=== PATIENT | female | born 1955 | race Two or more races ===

== ENCOUNTER → 2016-08-06 | Outpatient (CLI) | payer OTHER ==
[~2016-08-06] MED LIST: ATEN100T; LOSA1TAB21; METF500T4; NABU-83; OMEP20CA9; TRAM100T27
--- NOTE | 2016-08-07 09:29 | RADRPT ---
PROCEDURE: XR Knee. CLINICAL INDICATION: Left knee pain TECHNIQUE: 4 views of the left knee are available for review. COMPARISON: None available FINDINGS: Severe narrowing of the medial compartment of the left knee is seen. Severe narrowing of the latera l compartment of the left knee is seen. There is narrowing of the patellofemoral joint as well. Th ere is significant associated osteophyte formation as well. Findings are consistent with significan t osteoarthritic degenerative changes of the left knee. No acute fracture or dislocation is seen. No radiopaque foreign body is identified. There is approximately 1 cm lateral subluxation of the ti narda relative to the femur. IMPRESSION: 1. Severe tricompartmental osteoarthritic degenerative changes of the left knee. 2. There is approximately 1 cm lateral subluxation of the tibia relative to the femur. RPTAT: QQ .Srinivas Nichole MD, Date Time Electronically viewed and signed by .Srinivas Nichole MD, on 08/07/2016 09:28 .R/
== END | disposition home or self-care (01) ==
LOC: HKI 09:31
PROVIDERS: ATTEND Orthopaedic Surgery
DX: M17.12 Unilateral primary osteoarthritis, left knee (principal); M25.562 Pain in left knee
CPT/HCPCS: 73564; G0463

== ENCOUNTER → 2016-09-05 | Outpatient (CLI) | payer OTHER ==
--- NOTE | 2016-09-05 16:56 | RADRPT ---
PROCEDURE: Limited x-ray of both lower extremities. CLINICAL INDICATION: Bilateral leg pain. TECHNIQUE: Single frontal view of both lower extremities was obtained from the hips to the calves. COMPARISON: Left knee radiographs dated 08/06/2016. FINDINGS: The hips are not well seen due to technical factors. There are moderate degenerative changes of the right knee and severe degenerative changes of the left knee. There is approximately 1 cm lateral scherer bluxation of the left tibia. IMPRESSION: 1. Is not well seen. 2. Moderate degenerative changes of the right knee and severe degenerative changes of the left knee . 3. Approximately 1 cm lateral subluxation of the left tibia. RPTAT: QQ .Kadeem Baeza MD, MD Date Time Electronically viewed and signed by .Kadeem Baeza MD, on 09/05/2016 16:56 .R/
== END | disposition home or self-care (01) ==
LOC: HKI 09:17
PROVIDERS: ATTEND Orthopaedic Surgery
DX: Z01.818 Encounter for other preprocedural examination (principal); M17.12 Unilateral primary osteoarthritis, left knee; M25.562 Pain in left knee
CPT/HCPCS: 77073; G0463

== ENCOUNTER 2016-09-11 09:18 | Inpatient (IN) | payer OTHER ==
[2016-09-10 13:16] VITALS: BMI 33.2
--- NOTE | 2016-09-10 15:08 | PREOPHP ---
DATE OF ADMISSION: 09/11/2016 CHIEF COMPLAINT: Severe pain in the left knee. HISTORY OF PRESENT ILLNESS: Patient has been having arthritis of the left knee for many years. Karen n gradually became worse recently. Patient was seen by Dr. Robledo in orthopedic consultation, and jaky coronado felt that the knee arthritis had degenerated to the point where the patient required a total left knee replacement. The patient accordingly presents herself to the hospital at this time for this pr ocedure. FAMILY HISTORY: Mother of a stroke at age 59. Father of causes due to smoking, probably chronic obstructive bronchopulmonary disease at age 54. Patient had 3 brothers, 2 are alive, 1 is d ead. The one that , of renal insufficiency. One is normal and healthy, and one has diabete s mellitus. The patient has 1 sister alive and well. No family history of carcinoma or tuberculosi s. There is a family history of diabetes mellitus. Her brother has diabetes mellitus, and the princess ent herself has diabetes mellitus. SOCIAL HISTORY: Patient does not smoke and does not use alcoholic beverages. PAST HISTORY: Serious, accidents, dates, and injuries: None. Serious illnesses: The patient has rheumatoid arthritis, diabetes mellitus, hypertension, and glauc tess. PREVIOUS SURGERIES: Reconstructive vaginal surgery 25 years ago. DRUGS AND MEDICATIONS: The patient takes the following drugs: 1. Omeprazole 40 mg daily. 2. Metformin 1000 mg twice a day. 3. Atenolol 100 mg twice a day. 4. Losartan 100 mg and hydrochlorothiazide 12.5 mg once a day. 5. Lomotil 2.5 mg 2 every 4 hours p.r.n. diarrhea. 6. Indocin 25 mg t.i.d. p.c. p.r.n. arthritic pain. 7, Crestor 10 mg tablet at bedtime daily. ALLERGIES: SHE IS ALLERGIC TO CLARITHROMYCIN AND INFLUENZA VACCINE. SHE IS ALSO ALLERGIC TO LAMISI L. REVIEW OF SYSTEMS: CARDIOVASCULAR: Patient has had hypertension for the past 10 years, well controlled on medication. No history of myocardial infarction. No history of rheumatic fever, no history of congenital heart disease, valvular heart disease, arrhythmia, cardiac insufficiency, angina pectoris, or myocardial infarction. RESPIRATORY: No history of asthma. No history of tuberculosis. No history of pneumonia, SERIOUS EYE DISEASE: Patient has glaucoma. GASTROINTESTINAL: No history of peptic ulcer disease, cholecystitis, hepatitis, jaundice, pancreati tis, ileitis, colitis, hematemesis, or melena. MUSCULOSKELETAL: No history of fracture. History of pain in her left knee for many years. Now, it has degenerated to the point patient requires total left knee replacement. NEUROLOGICAL: No history of epilepsy, convulsion, or CVA. No history of emotional disorder. GENITOURINARY: No history of cystitis, glomerulonephritis, pyelonephritis, or genital tract disorde r. Patient had a vaginal reconstructive surgery 25 years ago. PHYSICAL EXAMINATION: GENERAL: The patient is a well-developed white female, who does not appear acutely or chronically i ll. VITAL SIGNS: Blood pressure 138/70, pulse 80, respirations 16, temperature 98.6. SKIN: No evidence of dermatitis. NECK: Supple. Thyroid is not palpable. HEENT: Head is symmetrical with no evidence of injury or deformity. EYES: PERRLA, EOM normal. Disks flat. Peripheral and forward vision grossly intact. EARS, NOSE, AND THROAT: Clear. HEART: PMI left fifth interspace, left midclavicular line. No murmurs, no thrills, no bruits. A2 is greater than P2. No distention of jugular veins. No ankle edema. Hepatojugular reflux is not p resent. Patient has bilateral glaucoma. LUNGS: Clear to A and P. ABDOMEN: Liver, kidneys, spleen are not palpable. Bowel sounds are normal. There are no intraabdo ирина masses or bruits. GENITOURINARY: Normal external female genitalia. PELVIC, RECTAL: Deferred. Patient had pelvic and rectal 3 months ago with negative result. MUSCULOSKELETAL: Pain in the right knee, some swelling and increased heat in the right knee. Decre ased range of motion of the right knee. Remainder of the limbs are normal. NEUROLOGIC: DTRs normal and equal bilaterally including biceps, triceps, wrists, knees, and ankles. Plantars are flexor, and no pathological reflexes are present. PERIPHERAL VASCULAR: No carotid or subclavian artery bruits. Femoral and dorsal pedal pulses are n ormal and equal bilaterally. IMPRESSION: 1. Severe osteoarthritis of the right knee. 2. Glaucoma. 3. Diabetes mellitus. Dictated By: STEPHY ALARCON/DEEDEE Conf#: [id number] DID#: [id number]
[2016-09-11] VITALS (18 sets, daily range): BP systolic 100–189; BP diastolic 52–84; PULSE 50–84; RESP 15–20; Ht 162.6 cm; Wt 83.4 kg
[~2016-09-11] VITALS: Ht 162.6 cm; Wt 83.4 kg
[~2016-09-11 09:18] MED LIST changes: +CEFAZOLIN 1 GM INJ ONE; +ETOMIDATE 20 MG INJ ONE
[2016-09-11] MEDS ORDERED: TRANEXAMIC ACID 850 MG in SOD CHLORIDE 0.9% 91.5 ML IV ONE (11:00)
[2016-09-11] MEDS ORDERED: oxyCODONE (CR) 10 MG TAB [oxyCONTIN] X1 DOSE PO ONE (11:00)
[2016-09-11] MEDS ORDERED: CEFAZOLIN 2GM/50 ML (PMX) 50 ML X1 BEFORE INCISION IVPB ONE (11:00)
[2016-09-11] MEDS ORDERED: PAIN COCKTAIL-CEFUROXIME IRR ONE ×7 (11:00)
[2016-09-11] MEDS ORDERED: BUPIVACAINE LIPOSOME/PF 266 MG/20 ML VIAL INFIL ONE (11:00)
[2016-09-11] MEDS ORDERED: CELECOXIB 400 MG PO X1 DOSE PO ONE (11:00)
[2016-09-11] MEDS ORDERED: traMADOL 50 MG TAB X 1 DOSE PO ONE (11:00)
[2016-09-11] MEDS ORDERED: TRANEXAMIC ACID 850 MG in SOD CHLORIDE 0.9% 100 ML IVPB ONE (11:00)
[2016-09-11] MEDS ORDERED: PREGABALIN 300 MG PO X1 PO ONE (11:00)
[2016-09-11] MEDS ORDERED: TIMO5DRO30 BOTH EYES (11:29)
[2016-09-11] MEDS ORDERED: SITA100T8 PO (11:29)
[2016-09-11] MEDS ORDERED: BRIM15DR7 BOTH EYES (11:29)
[2016-09-11] MEDS ORDERED: ROCURONIUM 50 MG INJ ONE (11:52)
[2016-09-11] MEDS ORDERED: MIDAZOLAM 1 MG/ML 2 ML INJ ONE (11:52)
[2016-09-11] MEDS ORDERED: GLYCOPYRROLATE 1 MG INJ ONE (11:52)
[2016-09-11] MEDS ORDERED: NEOSTIGMINE 3 MG/3 ML SYRINGE ONE (11:52)
[2016-09-11] MEDS ORDERED: PROPOFOL 100 ML ONE (11:52)
[2016-09-11] MEDS ORDERED: DEXAMETHASONE 4 MG/ML 1 ML INJ ONE (11:53)
[2016-09-11] MEDS ORDERED: ONDANSETRON 4 MG INJ ONE (11:53)
[2016-09-11] MEDS ORDERED: LIDOCAINE 100 MG SYRINGE ONE (11:53)
[2016-09-11] MEDS ORDERED: FENTAnyl 50 MCG/ML VIAL ONE (11:53)
[2016-09-11] MEDS: traMADol 50 MG TAB PO SCH ×3 (12:00→23:07)
--- NOTE | 2016-09-11 13:30 | HPN ---
Date/Time of Note Date/Time of Note DATE: 09/11/16 TIME: 13:29 Interval H&P Admission Note Pt. seen H&P reviewed: No system changes No chnges from H&P dictated on 09/10/16 by SHI Arellano MD Sep 11, 2016 13:30
[2016-09-11] MEDS ORDERED: SODIUM CL BACTERIOSTATIC 30 ML INJ ONE (13:50)
[2016-09-11] MEDS ORDERED: POLYMYXIN B 500000 UNIT INJ ONE (13:50)
[2016-09-11] MEDS ORDERED: EXPAREL NOTE (BUPIVICAINE LIPOSOMAL) XX SCH (14:30)
[2016-09-11] MEDS ORDERED: BACITRACIN 50000 UNITS INJ ONE (14:59)
[2016-09-11] MEDS ORDERED: LABETALOL HCL 20MG INJ IV PRN (15:00)
[2016-09-11] MEDS ORDERED: MIDAZOLAM 1 MG/ML 2 ML INJ IV PRN (15:00)
[2016-09-11] MEDS ORDERED: MEPERIDINE 25 MG INJ IV PRN (15:00)
[2016-09-11] MEDS ORDERED: ONDANSETRON 4 MG INJ IV PRN ×2 (15:00→17:00)
[2016-09-11] MEDS ORDERED: EPHEDrine SULFATE 50 MG/5 ML SYG IV PRN (15:00)
[2016-09-11] MEDS ORDERED: hydrALAzine 20 MG INJ IV PRN (15:00)
[2016-09-11] MEDS ORDERED: DIPHENHYDRAMINE 50 MG INJ IV PRN (15:00)
[2016-09-11] MEDS ORDERED: TRIMETHOBENZAMIDE 100 MG/ML VIAL IM PRN (15:00)
[2016-09-11] MEDS ORDERED: HYDROmorphONE (0.2 MG/ML) 10ML SYG IV PRN ×3 (15:00)
[2016-09-11] MEDS ORDERED: FENTAnyl 50 MCG/ML VIAL IV PRN ×3 (15:00)
[2016-09-11] MEDS: VANCOMYCIN 1 GM INJ ONE ×2 (15:02→15:03)
[2016-09-11] MEDS: LACTATED RINGER'S 1,000 ML IV SCH ×3 (16:39→21:00)
--- NOTE | 2016-09-11 16:43 | OPR ---
Date/Time of Note Date/Time of Note DATE: 09/11/16 TIME: 16:41 Operative Report Free Text/Dictation Dictation # [id number] Procedure Date: Sep 11, 2016 Preoperative Diagnosis Left Knee OA Postoperative Diagnosis Same Operation Performed Left TKA Surgeon: SHI TORO MD physician assistant certified: FRITZ AZUL PA-C Anesthesia: general, spinal Anesthesiologist: Richard Allen M.D. Tourniquet Time: 73 minutes Estimated Blood Loss: 50 - 100 ml's Specimens Bone and soft tissue Tubes/Drains Hemovac x 1 Complications: None Pt Condition Post Procedure: stable Disposition: PACU SHI TORO MD Sep 11, 2016 16:43
--- NOTE | 2016-09-11 16:56 | PN ---
Date/Time of Note Date/Time of Note DATE: 09/11/16 TIME: 16:54 Assessment/Plan Lines/Catheters IV Catheter Type (from Nrsg): Peripheral IV Assessment/Plan Assessment/Plan Stable in PACU, s/p left TKA -continue antibiotics -pain meds as needed -ASA/SCDs -OOB with PT -check AM labs -monitor drain -d/c hill in AM XR of the left knee is pending at this time Subjective 24 Hr Interval Summary Doing well in PACU. Resting comfortably. Denies any pain. Moving extremities well. Exam/Review of Systems Vital Signs Vitals Vital Signs Date Time Temp Pulse Resp B/P Pulse Ox O2 Delivery O2 Flow Rate FiO2 09/11/16 16:48 99.1 09/11/16 16:41 63 18 100/53 98 Nasal Cannula 2.0 Intake and Output 09/10/16 09/10/16 09/11/16 15:00 23:00 07:00 Intake Total 0 ml Balance 0 ml Exam Free Text/Dictation Hemovac: minimal Dressing dry Incision clean, dry, and intact without redness or drainage Thigh soft 5/5 Quadriceps, Tibialis Anterior, EHL, Gastroc, Soleus, Peroneals Normal sensation Palpable DT/PT, CR <2 sec No distal edema FRITZ AZUL PA-C Sep 11, 2016 16:56
[2016-09-11] MEDS ORDERED: ASPIRIN (EC) 325 MG TAB PO ONE (17:00)
[2016-09-11] MEDS ORDERED: BISACODYL 10 MG SUPP PR PRN (17:00)
[2016-09-11] MEDS ORDERED: DIPHENHYDRAMINE 25 MG CAP PO PRN (17:00)
[2016-09-11] MEDS ORDERED: MAGNESIUM HYDROXIDE 30ML CUP PO PRN (17:00)
[2016-09-11] MEDS ORDERED: NA PHOSPHATE/BIPHOS 133 ML ENEMA PR PRN (17:00)
[2016-09-11] MEDS ORDERED: oxyCODONE 5 MG TAB PO PRN (17:00)
[2016-09-11] MEDS ORDERED: HYDROmorphONE 1 MG/ML SYG IV PRN (17:00)
[2016-09-11] MEDS ORDERED: NACL 0.9% 3 ML SYG IV SCH (17:00)
[2016-09-11 17:09] LABS: HEMATOCRIT 31.4 % (37.0-47.0); HEMOGLOBIN 10.3 g/dl (12.0-16.0)
[2016-09-11 17:12] LABS: POTASSIUM 4.5 mmol/L (3.5-5.1)
[2016-09-11] MEDS: CEFAZOLIN 2 GM/50 ML (PMX) 50 ML IVPB SCH (17:14)
[2016-09-11 17:17] LABS: CALCIUM 8.3 mg/dl (8.4-10.2); CREATININE 0.83 mg/dl (0.44-1.00)
[2016-09-11 17:21] LABS: ADD UMIC NO; URINE BILIRUBIN (Dip) NEGATIVE (NEGATIVE); URINE BLOOD (Dip) NEGATIVE (NEGATIVE); URINE COLOR LT. YELLOW (YELLOW); URINE GLUCOSE (Dip) NEGATIVE (NEGATIVE); URINE KETONES (Dip) NEGATIVE (NEGATIVE); URINE LEUKOCYTE ESTERASE (Dip) NEGATIVE (NEGATIVE); URINE NITRITE (Dip) NEGATIVE (NEGATIVE); URINE TOTAL PROTEIN (Dip) NEGATIVE (NEGATIVE); URINE UROBILINOGEN (Dip) 0.2 E.U./dL (0.1-1.0)
--- NOTE | 2016-09-11 17:29 | OPR ---
DATE OF OPERATION: 09/11/2016 PREOPERATIVE DIAGNOSIS: Left knee osteoarthritis. POSTOPERATIVE DIAGNOSIS: Left knee osteoarthritis. OPERATION PERFORMED: Left total knee arthroplasty. SURGEON: Shi Toro MD CASH POSTING SPECIALIST: LIBBY Gibbons COMPONENTS USED: DePuy Attune size 4 femoral component, size 3 tibial baseplate, 5 mm polyethylene insert and a 35 patellar button. ANESTHESIA: Spinal plus general endotracheal intubation plus periarticular injection. ANESTHESIOLOGIST: Richard Allen MD TOURNIQUET TIME: 73 minutes. ESTIMATED BLOOD LOSS: 50 mL INTRAVENOUS FLUIDS: 2 L of crystalloid. SPECIMENS: Bone and soft tissue. DRAINS: Hemovac x1. COMPLICATIONS: None. DISPOSITION: The patient tolerated the procedure well, was taken to the recovery room in stable con dition. INDICATIONS: The patient is a 61-year-old woman who has had progressive worsening pain in the left k nee with radiographic evidence of severe osteoarthritis with a marked varus deformity. She has fail ed nonsurgical means of treatment to control her pain including activity modifications, pain medicat ions and ambulatory assist devices. Despite these measures, she has had worsening pain. I felt she would benefit from a total knee arthroplasty. The risks, benefits, and alternatives of the procedure were explained in detail to the patient. I e xplained the risks of the surgery to include but not be limited to, bleeding and possible need for b lood transfusion; infection; pain; stiffness; neurovascular injury with possible numbness, weakness, and/or paralysis anywhere from the knee down to the toes; fracture; instability; dislocation; wear and/or loosening of the prosthesis and possible need for future revision; blood clots; pulmonary emb olism; and anesthetic complications such as heart attack, stroke, GI bleed, pneumonia, and/or . Ample time was allowed for the patient to ask questions, all of which were addressed and answered. The patient understood the risks involved and wished to proceed. Informed consent was signed prior to the procedure. PROCEDURE: The patient's left knee was initialed with a marking pen in the preoperative area to [place] ntify the correct operative site. The patient was brought to the operating room and transferred fro [facility] to the operating table where a spinal anesthetic was administered. T he patien t was then anesthetized and intubated. A Cevallos catheter was placed. A timeout was performed to con firm that the left leg was the correct operative site. The patient was given 2 g of Ancef within on e hour prior to the procedure. A tourniquet was placed on the operative proximal thigh. The operat blaise knee and lower extremity were prepped and draped in the usual sterile fashion. The operative lo wer extremity was elevated and exsanguinated with an Esmarch tourniquet. The proximal thigh tourniq uet was inflated to 300 mmHg. The knee was flexed. A midline incision was made and carried down through the subcutaneous tissue a nd fat with sharp dissection. Limited medial and lateral flaps were raised. A median parapatellar arthrotomy approach was performed. Synovial fluid was normal in color and consistency. The patella was everted and the knee flexed. There were severe tricompartmental osteoarthritic changes noted. A medial release was performed at the joint line to the midcoronal plane. The ACL and PCL and remnan ts of the menisci were excised. The stepped drill was used to open up the femoral canal which was i rrigated and sucked dry. The intramedullary guide rosio was passed up the femur, and the distal cutti ng block was pinned into place for a 5-degree valgus cut, taking 10 mm of bone off distally. The osc illating saw was used to make the cut. The tibia was subluxed anteriorly. The tibial cutoff jig was placed over the center of the talus d istally and over the junction of the medial and middle third of the tibial tubercle proximally. The guide was pinned into place and the oscillating saw was used to make the cut. The tibia was sized. The extension gap was checked and accommodated the 5 mm spacer block with the knee in full extensio n. There was no varus or valgus instability. At this point, the femur was sized with the posterior referencing guide. Two holes were drilled in 3 degrees of external rotation. The two holes were in line with the transepicondylar axis, perpendi cular to Mary's line, and in line with the tibial cutoff jig brought up with the knee flexed 90 degrees and tensed with 2 lamina spreaders, suggesting the femoral rotation was correct. The four- in-one cutting block was pinned into place. The anterior and posterior cuts and chamfer cuts were m zayra with the oscillating saw. The flexion gap was checked and accommodated the 5 mm spacer block at 90 degrees. There was no varus or valgus instability, suggesting the flexion and extension gaps we re now equal. The central box was cut out on the femur. The tibia was drilled and punched in proper rotation. Tri al components were placed into position with a trial insert. The patella was cut from 18 mm down to 12 mm and sized. Three holes were drilled and the trial button placed in position. With all the t rials now in place, the knee was taken through range of motion and came to full extension as evidenc ed by the fact that with the foot on my abdomen and axial loading, there was no tendency for the kne e to flex. The knee was able to be flexed to 125 degrees with good patellar tracking with no latera l tilt or subluxation. At this point, I was satisfied with the overall range of motion, stability, and patellar tracking. The trials were removed. The real components were opened. Two bags of cement were mixed, one with and one without premixed antibiotic. The knee was irrigated with antibiotic saline and sucked dry. Once the cement was in a doughy stage, the real components were cemented into place. The knee was held in full extension, and the patellar component was held with a patellar clamp. All excess cemen t was removed with curettes. As the cement was hardening, the synovial/capsular layer was infiltrat ed with a mixture of 150 mg of 0.5% Bupivacaine, 8 mg of Duramorph, 300 mcg of epinephrine, 30 mg of Toradol, 100 mcg of clonidine, 750 mg of cefuroxime and 86 mL of normal saline, followed by an inje ction of 266 mg of liposomal Bupivacaine. A Hemovac drain was placed in the deep portion of the wound and brought out the anterolateral thigh. Once the cement was completely hardened, the trial liner was removed, and the real insert was open ed. The tourniquet was let down, and there was good hemostasis. The knee was then irrigated with a mixture of Betadine/saline and then antibiotic saline with pulsatile lavage. The real insert was impacted into the tibia and reduced onto to the femur. The arthrotomy was closed with a few interrupted #1 Ethibond in a [id number] fashion, and then closed in a watertight fashion with a running #2 Stratafix suture. Knee flexion was checked against gravity and came to 125 degrees. The subcutaneous layer was irrigated and closed with 2-0 Statafix , and then 3-0 Vicryl and then tamia on the skin. The wound was covered with an occlusive dressin g, and secured with cast padding and a bias dressing. The drain was secured with 3-0 nylon. The sponge and needle counts were correct at the end of the case. The patient was then awakened, ex tubated, and taken to the recovery room in stable condition. Dictated By: SHI TORO MD EZ/NTS Conf#: [id number] DID#: [id number]
--- NOTE | 2016-09-11 17:48 | RADRPT ---
PROCEDURE: XR Left Knee. CLINICAL INDICATION: Left knee pain. Postop. TECHNIQUE: Two views. Frontal and lateral. COMPARISON: 08/06/2016. FINDINGS: There is no fracture or dislocation. Gas is present in the soft tissues from the recent surgery. A surgical drain and anterior skin stap les are noted. There is a total left knee arthroplasty which appears satisfactory. There is no lytic or blastic lesion. There is no joint effusion. IMPRESSION: 1. Satisfactory postoperative appearance of the left knee. RPTAT: QQ .Kadeem Baeza MD, MD Date Time Electronically viewed and signed by .Kadeem Baeza MD, MD on 09/11/2016 17:48 .R/
[2016-09-11] MEDS: PANTOPRAZOLE (EC) 40 MG TAB PO SCH (18:18)
[2016-09-11] MEDS: ACETAMINOPHEN 1000MG/100ML IV 100 ML IVPB SCH ×2 (18:18→23:07)
[2016-09-11] MEDS ORDERED: TRANEXAMIC ACID 830 MG in SOD CHLORIDE 0.9% 100 ML IVPB ONE ×2 (20:00→23:00)
[2016-09-11] MEDS: BRIMONIDINE 0.2% 5 ML BTL BOTH EYES SCH (21:13)
[2016-09-11] MEDS: TIMOLOL 0.5% 5 ML OPH BOTH EYES SCH (21:13)
[2016-09-11] MEDS: DOCUSATE SODIUM 100 MG CAP PO SCH (21:16)
[2016-09-11] MEDS: PREGABALIN 25 MG CAP PO SCH (21:16)
[2016-09-11] MEDS: LATANOPROST 0.005% 2.5 ML OPH BOTH EYES SCH (23:00)
[2016-09-12] MEDS: CEFAZOLIN 2 GM/50 ML (PMX) 50 ML IVPB SCH ×2 (00:52→08:52)
[2016-09-12] MEDS: LACTATED RINGER'S 1,000 ML IV SCH ×5 (00:53→20:56)
[2016-09-12 01:03] VITALS: BP 154/67; RESP 18
--- NOTE | 2016-09-12 03:19 | PN ---
DATE: 09/11/2016 SUBJECTIVE: The patient is awake, alert, comfortable. She is not in pain. OBJECTIVE: HEART: Normal sinus rhythm, no murmurs. LUNGS: Clear to A and P. ABDOMEN: Liver, kidneys, spleen are not palpable. Bowel sounds are normal. EXTREMITIES: Left knee is wrapped in bandages. Dressings are dry. No ankle edema. Feet are warm and dry, and there is a good dorsal pedal pulse bilaterally. VITAL SIGNS: The day of surgery, temperature 99.1, blood pressure 189/84, pulse 58 per minute and r egular. LABORATORY DATA: Hemoglobin 10.3, hematocrit 31.4. Sodium 138, potassium 4.5, chloride 105, carbon dioxide 25, BUN 15, creatinine 0.83, glucose 177, calcium 8.3. Urinalysis is normal. MRSA test is negative. Knee x-ray revealed satisfactory postoperative appearance of the left knee. The patient is doing well postoperatively. Dictated By: STEPHY ALARCON/DEEDEE Conf#: [id number] DID#: [id number]
[2016-09-12 05:21] LABS: ADD SCAN DIFF NO
[2016-09-12] MEDS: PANTOPRAZOLE (EC) 40 MG TAB PO SCH ×2 (05:29→17:51)
[2016-09-12] MEDS: ACETAMINOPHEN 1000MG/100ML IV 100 ML IVPB SCH ×2 (05:29→11:15)
[2016-09-12] MEDS: traMADol 50 MG TAB PO SCH ×3 (05:29→17:50)
[2016-09-12 05:41] LABS: POTASSIUM 4.7 mmol/L (3.5-5.1)
[2016-09-12 05:44] LABS: CREATININE 0.93 mg/dl (0.44-1.00)
[2016-09-12 05:45] LABS: CALCIUM 8.5 mg/dl (8.4-10.2)
[2016-09-12 06:23] LABS: ADD UMIC NO; URINE BILIRUBIN (Dip) NEGATIVE (NEGATIVE); URINE BLOOD (Dip) NEGATIVE (NEGATIVE); URINE COLOR LT. YELLOW (YELLOW); URINE GLUCOSE (Dip) NEGATIVE (NEGATIVE); URINE KETONES (Dip) TRACE (NEGATIVE); URINE LEUKOCYTE ESTERASE (Dip) NEGATIVE (NEGATIVE); URINE NITRITE (Dip) NEGATIVE (NEGATIVE); URINE TOTAL PROTEIN (Dip) NEGATIVE (NEGATIVE); URINE UROBILINOGEN (Dip) 0.2 E.U./dL (0.1-1.0)
[2016-09-12 07:07] LABS: BASOPHILS % 0.1 % (0.0-2.0); HEMATOCRIT 32.3 % (37.0-47.0); HEMOGLOBIN 10.4 g/dl (12.0-16.0); LYMPHOCYTES # 0.8 10^3/ul (0.8-2.9); LYMPHOCYTES % 7.9 % (15.0-51.0); MEAN CORPUSCULAR HEMOGLOBIN 30.3 pg (29.0-33.0); MEAN CORPUSCULAR HGB CONC 32.2 g/dl (32.0-37.0); MEAN CORPUSCULAR VOLUME 94.2 fl (82.0-101.0); MONOCYTE # 0.3 10^3/ul (0.3-0.9); MONOCYTES % 3.1 % (0.0-11.0); NEUTROPHIL # 9.3 10^3/ul (1.6-7.5); NEUTROPHILS % 88.3 % (39.0-77.0); PLATELET COUNT 240 10^3/UL (140-415); RED BLOOD COUNT 3.43 10^6/ul (4.20-5.40); WHITE BLOOD COUNT 10.5 10^3/ul (4.8-10.8)
[2016-09-12 07:47] VITALS: BP 170/72; PULSE 54; RESP 14
[2016-09-12] MEDS ORDERED: GLUCOSE GEL 15 GRAM TUBE BUCCAL PRN (08:30)
[2016-09-12] MEDS ORDERED: GLUCAGON 1 MG INJ IM PRN (08:30)
[2016-09-12] MEDS ORDERED: DEXTROSE 50% 50 ML SYRINGE IV PRN ×2 (08:30)
[2016-09-12] MEDS ORDERED: GLUCOSE GEL 15 GRAM TUBE PO PRN ×2 (08:30)
[2016-09-12] MEDS: CELECOXIB 200 MG CAP PO SCH (08:52)
[2016-09-12] MEDS: ASPIRIN (EC) 325 MG TAB PO SCH ×2 (08:52→20:58)
[2016-09-12] MEDS: LINAGLIPTIN 5 MG TABLET PO SCH (08:52)
[2016-09-12] MEDS: DOCUSATE SODIUM 100 MG CAP PO SCH ×2 (08:52→20:58)
[2016-09-12] MEDS: metFORMIN 500 MG TAB PO SCH ×2 (08:53→17:51)
[2016-09-12] MEDS: PREGABALIN 25 MG CAP PO SCH ×2 (08:53→20:58)
[2016-09-12] MEDS: LOSARTAN 50 MG TAB PO SCH (08:54)
[2016-09-12] MEDS: HYDROCHLOROTHIAZIDE 12.5 MG CAP PO SCH (08:54)
[2016-09-12] MEDS: TIMOLOL 0.5% 5 ML OPH BOTH EYES SCH ×2 (08:54→20:58)
[2016-09-12] MEDS: BRIMONIDINE 0.2% 5 ML BTL BOTH EYES SCH ×2 (08:54→21:00)
--- NOTE | 2016-09-12 08:58 | PN ---
Date/Time of Note Date/Time of Note DATE: 09/12/16 TIME: 08:57 Assessment/Plan Lines/Catheters IV Catheter Type (from Nrsg): Peripheral IV Cevallos in Place (from Nrsg): Yes Assessment/Plan Assessment/Plan Stable POD #1, s/p left TKA -d/c abx -pain meds as needed -OOB with PT -ASA/SCDs for DVT prophylaxis -drain removed -check AM labs -discharge planning. Will plan to go home upon discharge Subjective 24 Hr Interval Summary Doing well. No acute overnight events. Denies any knee pain. Did not start PT yesterday. VSS, afebrile. Will plan to go home upon discharge. Exam/Review of Systems Vital Signs Vitals Vital Signs Date Time Temp Pulse Resp B/P Pulse Ox O2 Delivery O2 Flow Rate FiO2 09/12/16 07:47 98.2 54 14 170/72 97 Room Air 09/11/16 17:36 2.0 Intake and Output 09/11/16 09/11/16 09/12/16 15:00 23:00 07:00 Intake Total 2100 ml 2725 ml Output Total 310 ml 1900 ml Balance 1790 ml 825 ml Exam Free Text/Dictation Hemovac: 160cc Dressing dry Incision clean, dry, and intact without redness or drainage Thigh soft 5/5 Quadriceps, Tibialis Anterior, EHL, Gastroc, Soleus, Peroneals Normal sensation Palpable DT/PT, CR <2 sec No distal edema Results Result Diagram: 09/12/168 09/12/16 0448 FRITZ AZUL PA-C Sep 12, 2016 08:58
[2016-09-12] MEDS: oxyCODONE 5 MG TAB PO PRN ×2 (09:00→12:44)
[2016-09-12] MEDS: ATENOLOL 100 MG TAB PO SCH ×2 (09:00→20:57)
[2016-09-12] MEDS: INSULIN ASPART [NOVOLOG] 3 ML PEN SC SCH ×2 (18:39→21:00)
[2016-09-12] MEDS: LATANOPROST 0.005% 2.5 ML OPH BOTH EYES SCH (20:56)
[2016-09-12 21:13] VITALS: BP 184/79; RESP 20
[2016-09-12 22:15] VITALS: BP 149/65; PULSE 58
[2016-09-13] MEDS: traMADol 50 MG TAB PO SCH ×4 (00:04→17:47)
--- NOTE | 2016-09-13 00:41 | PN ---
DATE: 09/12/2016 PHYSICAL EXAMINATION: GENERAL: The patient is alert and awake, comfortable, no excessive pain. LUNGS: Clear to A and P. HEART: Normal sinus rhythm, no murmur, no enlargement. ABDOMEN: Liver, kidneys, spleen are not palpable. Bowel sounds are normal. There are no intraabdo ирина masses or bruits. The patient has not yet had a BM, and she has not yet passed any gas or fla tus, per . EXTREMITIES: Dressing on the left knee is dry. Blood and drainage through her drainage tube is min imal. Feet are warm, and dry. No ankle edema. VITAL SIGNS: Temperature was 99, blood press was 184/79, pulse was 63. LABORATORY DATA: White blood cells 10,500, hemoglobin is 10.4, hematocrit is 32.3%. Electrolytes: Sodium is 136, potassium is 4.7, chloride is 102, carbon dioxide is 25, BUN is 19, creatinine is 0. 93, glucose is 177, calcium is 8.5. ASSESSMENT: This is postoperative day #1. The patient is doing well. She has been up and walking, and will probably be discharged within the next 24-48 hours. Dictated By: STEPHY ALARCON/DEEDEE Conf#: [id number] DID#: [id number]
[2016-09-13] MEDS: ACCUCHECK XX SCH (02:00)
[2016-09-13 05:04] LABS: ADD SCAN DIFF NO
[2016-09-13 05:28] LABS: BASOPHILS % 0.2 % (0.0-2.0); EOSINOPHILS # 0.1 10^3/ul (0.0-0.5); EOSINOPHILS % 0.6 % (0.0-7.0); HEMATOCRIT 28.3 % (37.0-47.0); HEMOGLOBIN 9.2 g/dl (12.0-16.0); LYMPHOCYTES % 28.8 % (15.0-51.0); MEAN CORPUSCULAR HEMOGLOBIN 30.7 pg (29.0-33.0); MEAN CORPUSCULAR HGB CONC 32.5 g/dl (32.0-37.0); MEAN CORPUSCULAR VOLUME 94.3 fl (82.0-101.0); MEAN PLATELET VOLUME 11.9 fl (7.4-10.4); MONOCYTE # 0.7 10^3/ul (0.3-0.9); MONOCYTES % 7.2 % (0.0-11.0); NEUTROPHIL # 6.4 10^3/ul (1.6-7.5); NEUTROPHILS % 62.8 % (39.0-77.0); PLATELET COUNT 207 10^3/UL (140-415); RED CELL DISTRIBUTION WIDTH 14.2 % (11.5-14.5); WHITE BLOOD COUNT 10.2 10^3/ul (4.8-10.8)
[2016-09-13 05:53] LABS: POTASSIUM 4.6 mmol/L (3.5-5.1)
[2016-09-13 05:56] LABS: CREATININE 1.2 mg/dl (0.44-1.00)
[2016-09-13 05:57] LABS: CALCIUM 8.2 mg/dl (8.4-10.2)
[2016-09-13] MEDS: PANTOPRAZOLE (EC) 40 MG TAB PO SCH ×2 (06:10→17:48)
[2016-09-13] MEDS: INSULIN ASPART [NOVOLOG] 3 ML PEN SC SCH ×4 (07:50→21:15)
[2016-09-13] MEDS: LACTATED RINGER'S 1,000 ML IV SCH ×2 (08:06→15:43)
[2016-09-13 08:11] VITALS: BP 137/63; RESP 18
[2016-09-13] MEDS: BRIMONIDINE 0.2% 5 ML BTL BOTH EYES SCH ×2 (08:35→21:07)
[2016-09-13] MEDS: CELECOXIB 200 MG CAP PO SCH (08:35)
[2016-09-13] MEDS: ASPIRIN (EC) 325 MG TAB PO SCH ×2 (08:35→21:04)
[2016-09-13] MEDS: TIMOLOL 0.5% 5 ML OPH BOTH EYES SCH ×2 (08:35→21:06)
[2016-09-13] MEDS: LINAGLIPTIN 5 MG TABLET PO SCH (08:35)
[2016-09-13] MEDS: FERROUS FUMARATE (SR) TAB PO SCH (08:36)
[2016-09-13] MEDS: metFORMIN 500 MG TAB PO SCH ×2 (08:36→17:47)
[2016-09-13] MEDS: LOSARTAN 50 MG TAB PO SCH (08:36)
[2016-09-13] MEDS: PREGABALIN 25 MG CAP PO SCH ×2 (08:36→21:04)
[2016-09-13] MEDS: HYDROCHLOROTHIAZIDE 12.5 MG CAP PO SCH (08:36)
[2016-09-13] MEDS: DOCUSATE SODIUM 100 MG CAP PO SCH ×2 (08:36→21:05)
[2016-09-13] MEDS: oxyCODONE 5 MG TAB PO PRN ×3 (08:37→21:04)
[2016-09-13] MEDS: ATENOLOL 100 MG TAB PO SCH ×2 (08:37→21:05)
--- NOTE | 2016-09-13 13:22 | PN ---
Date/Time of Note Date/Time of Note DATE: 09/13/16 TIME: 13:21 Assessment/Plan Lines/Catheters IV Catheter Type (from Nrsg): Peripheral IV Cevallos in Place (from Nrsg): Yes Assessment/Plan Assessment/Plan Stable POD #2, s/p left TKA -pain meds as needed -ASA/SCDs for DVT prophylaxis -OOB with PT -check AM labs -dressing changed -plan to discharge home tomorrow Subjective 24 Hr Interval Summary No acute overnight events. Denies significant pain. Progressing well with PT. VSS, afebrile. Will plan to d/c home tomorrow Exam/Review of Systems Vital Signs Vitals Vital Signs Date Time Temp Pulse Resp B/P Pulse Ox O2 Delivery O2 Flow Rate FiO2 09/13/16 08:11 98.4 64 18 137/63 97 09/12/16 07:47 Room Air 09/11/16 17:36 2.0 Intake and Output 09/12/16 09/12/16 09/13/16 15:00 23:00 07:00 Intake Total 2830 ml 1280 ml Output Total 400 ml 2000 ml Balance 2430 ml -720 ml Exam Free Text/Dictation Dressing dry Incision clean, dry, and intact without redness or drainage Thigh soft 5/5 Quadriceps, Tibialis Anterior, EHL, Gastroc, Soleus, Peroneals Normal sensation Palpable DT/PT, CR <2 sec No distal edema Results Result Diagram: 09/13/16 0415 09/13/16 0415 FRITZ AZUL PA-C Sep 13, 2016 13:22
[2016-09-13 20:02] VITALS: BP 159/64; RESP 20
[2016-09-13] MEDS: LATANOPROST 0.005% 2.5 ML OPH BOTH EYES SCH (21:05)
[2016-09-14] MEDS: traMADol 50 MG TAB PO SCH ×2 (00:17→06:11)
[2016-09-14] MEDS: LACTATED RINGER'S 1,000 ML IV SCH ×2 (00:39→08:34)
--- NOTE | 2016-09-14 00:47 | PN ---
DATE: 09/13/2016 SUBJECTIVE: The patient awake, alert. This is postoperative day #2. She is having some discomfort in the left leg at the site of surgery, some muscle spasm. OBJECTIVE: CHEST: Clear to A and P. HEART: Normal sinus rhythm. ABDOMEN: Liver, kidneys, spleen not palpable. Bowel sounds are normal. The patient states that susi coronado has already had a BM. EXTREMITIES: There is no swelling of the ankles. Dorsal pedal pulses are good, and patient moves b oth legs, both toes well. The patient has been up out of bed and has been weightbearing. VITAL SIGNS: She is afebrile. Blood pressure is 159/64. Pulse is 64 per minute, regular. LABORATORY DATA: White blood cell count is 10,200, hemoglobin is 9.2, hematocrit is 28.3%. Platele t count is normal. Electrolytes: Sodium 136, potassium 4.6, chloride 102, carbon dioxide 25, BUN 3 0, creatinine 1.2, glucose 139. Hemoglobin A1c is 8.4. Albumin is 8.2. Calcium is 8.2, uncorrecte d. Urine culture: No growth after 24 hours. The patient doing well. She may be discharged tomorrow if this is satisfactory with the surgeon. Dictated By: STEPHY ALARCON/DEEDEE Conf#: [id number] DID#: [id number]
[2016-09-14] MEDS: ACCUCHECK XX SCH (02:00)
[2016-09-14] MEDS: oxyCODONE 5 MG TAB PO PRN ×3 (02:17→12:51)
[2016-09-14 04:56] LABS: ADD SCAN DIFF NO
[2016-09-14 05:01] LABS: BASOPHILS % 0.1 % (0.0-2.0); EOSINOPHILS # 0.2 10^3/ul (0.0-0.5); EOSINOPHILS % 1.8 % (0.0-7.0); HEMATOCRIT 29.9 % (37.0-47.0); HEMOGLOBIN 9.4 g/dl (12.0-16.0); LYMPHOCYTES # 1.9 10^3/ul (0.8-2.9); LYMPHOCYTES % 18.7 % (15.0-51.0); MEAN CORPUSCULAR HEMOGLOBIN 30.1 pg (29.0-33.0); MEAN CORPUSCULAR HGB CONC 31.4 g/dl (32.0-37.0); MEAN CORPUSCULAR VOLUME 95.8 fl (82.0-101.0); MEAN PLATELET VOLUME 11.8 fl (7.4-10.4); NEUTROPHIL # 6.9 10^3/ul (1.6-7.5); PLATELET COUNT 214 10^3/UL (140-415); RED BLOOD COUNT 3.12 10^6/ul (4.20-5.40); RED CELL DISTRIBUTION WIDTH 14.4 % (11.5-14.5)
[2016-09-14 05:16] LABS: CREATININE 1.01 mg/dl (0.44-1.00)
[2016-09-14 05:17] LABS: CALCIUM 8.5 mg/dl (8.4-10.2)
[2016-09-14] MEDS: PANTOPRAZOLE (EC) 40 MG TAB PO SCH (06:11)
--- NOTE | 2016-09-14 07:30 | PDOCDIS ---
Discharge Instructions DIAGNOSIS Discharge Diagnosis: s/p left TKA CONDITION Patient Condition: Good HOME CARE INSTRUCTIONS: Diet Instructions: RegularSpecial Diet: 1500 ADA ACTIVITY: Activity Restrictions: Slowly Increase Activity Rest between Activity Avoid heavy lifting Do not operate Machinery Do not operate Power Tool Avoid Heavy Housework Keep Limb Elevated Bathing Restrictions: Shower FOLLOW UP/APPOINTMENTS Appointments follow up in the office on 09/21/16 OTHER ORDERS: Other Orders: S/P TKA Physical Therapy: Three times per week at home x 2 weeks Daily in Rehab/SNF WB STATUS: WBAT 1. Strengthening exercises for both upper and un-operated lower extremities. 2. Gait training with front wheeled walker 3. Active range of motion exercises to operative knee. 4. When not working on knee range of motion exercises, distal towel roll under operative ankle/distal calf to promote full extension. 5. DO NOT PUT ANYTHING BEHIND OPERATIVE KNEE!!! 6. Quadriceps and hamstring strengthening. 7. May switch to cane in contra lateral hand 6 weeks after surgery. 8. Physical Therapy can open case if nursing is not available. 9. Use Ice Machine as instructed from date of surgery while at rest 3X/day. 10. Patient requires mobile SCDs to reduce risk of developing DVT following TKA. Patient will use the mobile SCDs for 30 days postoperatively. Bathing assistance by home health aide twice weekly if Medicare patient. Occupational Therapy: Evaluation for assistive devices and ADL training. Wound Care: Keep incision dry & covered with Tegaderm until first visit with Dr. Robledo Anticoagulation Orders: Enteric Coated Aspirin 325 mg po bid x 6 weeks from date of surgery Follow-up:Call for an appointment with Dr. Robledo in 1 week after discharged from hospital at DME Orders: FWLuisa, 3-in-1 Commode, Polar ice machine, Mobile SCDs FRITZ AZUL PA-C Sep 14, 2016 07:30
[2016-09-14] MEDS ORDERED: LYRI25 PO (07:31)
[2016-09-14] MEDS ORDERED: TRAM50TA2 PO (07:31)
[2016-09-14] MEDS ORDERED: HYDR-905 PO (07:31)
[2016-09-14] MEDS ORDERED: ASPI325T32 PO (07:31)
[2016-09-14 07:55] VITALS: BP 196/88; RESP 18
--- NOTE | 2016-09-14 08:22 | PN ---
Date/Time of Note Date/Time of Note DATE: 09/14/16 TIME: 08:21 Assessment/Plan Lines/Catheters IV Catheter Type (from Nrsg): Peripheral IV [place] in Place (from Nrsg): Yes Assessment/Plan Assessment/Plan Stable POD #3, s/p left TKA -pain meds as needed -ASA/SCDs -OOB with PT -dressing changed -d/c home today -follow up in the office in 1 week Subjective 24 Hr Interval Summary Doing well. No acute overnight events. Mild knee pain secondary to cramping. Denies calf pain. VSS, afebrile. Will plan to go home today. Exam/Review of Systems Vital Signs Vitals Vital Signs Date Time Temp Pulse Resp B/P Pulse Ox O2 Delivery O2 Flow Rate FiO2 09/14/16 07:55 98.4 60 18 196/88 98 09/12/16 07:47 Room Air 09/11/16 17:36 2.0 Intake and Output 09/13/16 09/13/16 09/14/16 15:00 23:00 07:00 Intake Total 1080 ml 700 ml Balance 1080 ml 700 ml Exam Free Text/Dictation Dressing dry Incision clean, dry, and intact without redness or drainage Thigh soft 5/5 Quadriceps, Tibialis Anterior, EHL, Gastroc, Soleus, Peroneals Normal sensation Palpable DT/PT, CR <2 sec No distal edema Results Result Diagram: 09/14/16 0425 09/14/16 0425 FRITZ AZUL PA-C Sep 14, 2016 08:22
[2016-09-14] MEDS: PREGABALIN 25 MG CAP PO SCH (08:32)
[2016-09-14] MEDS: ASPIRIN (EC) 325 MG TAB PO SCH (08:32)
[2016-09-14] MEDS: LINAGLIPTIN 5 MG TABLET PO SCH (08:32)
[2016-09-14] MEDS: BRIMONIDINE 0.2% 5 ML BTL BOTH EYES SCH (08:32)
[2016-09-14] MEDS: CELECOXIB 200 MG CAP PO SCH (08:32)
[2016-09-14] MEDS: FERROUS FUMARATE (SR) TAB PO SCH (08:32)
[2016-09-14] MEDS: DOCUSATE SODIUM 100 MG CAP PO SCH (08:32)
[2016-09-14] MEDS: TIMOLOL 0.5% 5 ML OPH BOTH EYES SCH (08:33)
[2016-09-14] MEDS: metFORMIN 500 MG TAB PO SCH (08:33)
[2016-09-14] MEDS: ATENOLOL 100 MG TAB PO SCH (08:34)
[2016-09-14] MEDS: LOSARTAN 50 MG TAB PO SCH (08:34)
[2016-09-14] MEDS: HYDROCHLOROTHIAZIDE 12.5 MG CAP PO SCH (08:35)
[2016-09-14] MEDS: INSULIN ASPART [NOVOLOG] 3 ML PEN SC SCH ×2 (08:44→12:50)
--- NOTE | 2016-09-14 12:24 | DS ---
DATE OF ADMISSION: 09/11/2016 DATE OF DISCHARGE: 09/14/2016 CONDITION UPON DISCHARGE: Stable ADMITTING DIAGNOSIS: Left knee osteoarthritis. DISCHARGE DIAGNOSIS: Status post left total knee arthroplasty. PROCEDURE PERFORMED: Left total knee arthroplasty. HOSPITAL COURSE: This is a 61-year-old female who was seen in the clinic initially complaining of left knee pain. X-rays were done and demonstrated advanced osteoarthritis of the left knee and it was thought she would benefit from a left total knee arthroplasty. On 09/11/2016, the patient was admitted and taken to the operating room where she underwent a left total knee arthroplasty. There were no intraoperative complications. The patient tolerated the procedure well. She was taken to the recovery room in stable condition. Pain was well controlled with oral pain medication. She was hemodynamically stable and neurovascularly intact throughout her hospital stay. She was started on aspirin and SCDs for venous thrombosis prophylaxis. On postoperative day 1, she began physical therapy and continued to make good progress. She was deemed clinically stable for discharge on postoperative day # 3. Prior to discharge, the incision was inspected and noted to be clean, dry and intact. Dressing changes were done prior to patient going home. LABORATORY ANALYSIS UPON DISCHARGE: Hemoglobin 9.4, hematocrit 29.9. Chemistry panel shows a slightly elevated BUN and creatinine was otherwise within normal limits. DISCHARGE MEDICATIONS: 1. [place] 7.5/325 mg 2. Tramadol 50 mg. 3. Lyrica 50 mg. 4. Aspirin 325 mg. Additionally, the patient is to resume all of her normal home medications. DISCHARGE INSTRUCTIONS: The patient will be discharged home in stable condition. She is to resume a normal diet. Includes weightbearing as tolerated on the left lower extremity. She is to begin physical therapy with home health. She will be discharged home with the medications noted above and is to resume all her normal home medications. The patient is to call the office or go to the emergency room for any concerns including increased redness, drainage or fever or any concerns regarding the operation or site of incision. FOLLOWUP: The patient will follow up with Dr. Robledo in the office on 2016. Dictated By: FRITZ SOUZA for SHI MANSFIELD/DEEDEE Conf#: [id number] DID#: [id number] [facility] CENTERCarmen
[2016-09-14 16:05] LABS: CREATININE, RANDOM URINE 32 mg/dL (20-320); MICROALBUMIN <0.2 mg/dL; MICROALBUMIN/CREATININE RATIO NOTE (<30)
== END 2016-09-14 13:45 | disposition home health service (06) | DRG 470 ==
LOC: REC 10:10 → MS1 18:07
PROVIDERS: ADMIT Orthopaedic Surgery; ATTEND Orthopaedic Surgery
PROC: 0SRD0J9 Replacement of Left Knee Joint with Synthetic Substitute, Cemented, Open Approach (ICD-10-PCS; principal; 2016-09-11 13:00)
DX: M17.12 Unilateral primary osteoarthritis, left knee (principal); M06.9 Rheumatoid arthritis, unspecified; I10 Essential (primary) hypertension; E11.9 Type 2 diabetes mellitus without complications; H40.9 Unspecified glaucoma; M62.838 Other muscle spasm
CPT/HCPCS: 73560; 80048; 81003; 82040; 82043; 82962; 83036; 85014; 85018; 85025; 86850; 86900; 86901; 86920; 87081; 87086; 97110; 97116; 97162; 97166; 97530; Z7610; C1776; C9290; J0131; J0171; J0690; J0697; J0735; J1100; J1815; J1885; J2001; J2250; J2274; J2405; J2710; J3010; J3370; J7120

== ENCOUNTER → 2016-09-21 | Outpatient (CLI) | payer OTHER ==
[~2016-09-21] MED LIST changes: +ASPI325T32 PO; +BRIM15DR7 BOTH EYES; -CEFAZOLIN 1 GM INJ ONE; -ETOMIDATE 20 MG INJ ONE; +HYDR-905 PO; +LYRI25 PO; +SITA100T8 PO; +TIMO5DRO30 BOTH EYES; -TRAM100T27; +TRAM50TA2 PO
--- NOTE | 2016-09-21 18:00 | RADRPT ---
PROCEDURE: Ultrasound of the left lower extremity venous system. CLINICAL INDICATION: Left leg pain and swelling, deep venous thrombosis TECHNIQUE: Torres scale with and without compression, color doppler, spectral doppler of the venous system of the left lower extremity was performed. Venous augmentation maneuvers were utilized. COMPARISON: No prior studies are available for comparison. FINDINGS: Common femoral vein: Patent. Femoral vein: Patent. Popliteal vein: Patent. Calf veins: Patent. No soft tissue abnormalities are identified. IMPRESSION: No evidence of a deep vein thrombosis within the left lower extremity. RPTAT: AADD .Nic Castillo MD, MD Date Time Electronically viewed and signed by .Nic Castillo MD, on 09/21/2016 17:59 .B/
== END | disposition home or self-care (01) ==
LOC: VAS 16:36
DX: I82.4Z2 Acute embolism and thrombosis of unspecified deep veins of left distal lower extremity (principal)
CPT/HCPCS: 93971

== ENCOUNTER → 2016-09-21 | Outpatient (CLI) | payer OTHER ==
--- NOTE | 2016-09-21 10:40 | RADRPT ---
PROCEDURE: XR left knee. CLINICAL INDICATION: Knee pain. TECHNIQUE: AP and lateral weightbearing views are available for review. COMPARISON: 09/11/2016 FINDINGS: There is a total knee replacement. There is no evidence of loosening of the prosthesis. There is no evidence of hardware failure. The osseous structures are normal in mineralization, architecture and alignment No acute fracture or dislocation is seen.No osseous lesions are identified. The soft tiss ues are unremarkable . there are anterior skin tamia in place. IMPRESSION: Unremarkable total knee replacement. RPTAT: HGDB .Noe Suarez MD, MD Date Time Electronically viewed and signed by .Noe Suarez MD, on 09/21/2016 10:40 .B/
--- NOTE | 2016-09-21 11:28 | HKNOTE ---
DATE OF SERVICE: 09/21/2016 INTERVAL HISTORY: The patient presents today for her first postoperative evaluation. She is 10 day s status post left total knee arthroplasty. She is doing well overall. She has been having some mo derate pain and swelling to her left leg. She denies any fevers or chills. She is taking the pain medicine and aspirin as prescribed. She is working with physical therapy in her home. She is ambul ating with a front-wheel walker. She presents today for her first postoperative evaluation. PHYSICAL EXAMINATION: On exam today, she is alert and oriented x4 and in no acute distress. She is ambulating with a front-wheel walker. Exam of the knee demonstrates the incision to be clean, dry, and intact. [place] are in place. The incision is well healing. Range of motion is 0 to 85 degre es. She does have 2+ lower extremity swelling. Homans sign is negative. Compartments are otherwis e soft. Neurovascular status intact distally. IMAGING: X-rays of left knee were obtained today and reviewed by me. They show good anatomic align ment of the prosthesis. There is no evidence of fracture or dislocation. ASSESSMENT: 10 days status post left total knee arthroplasty. PLAN: The tamia were removed today, and Steri-Strips were applied. She is to continue aspirin tw ice daily for 6 weeks after surgery. The patient is also to take her pain medicine as needed. Give n the amount of leg swelling, we will obtain Doppler of the left lower extremity to rule out DVT. Derrick ellison that it is most likely negative, I advised her to ice and elevate the extremity. She will begi n outpatient physical therapy in the next coming weeks. Prescription was given today. We will see her back in 4 weeks for repeat evaluation. If her Doppler is positive, we will treat her accordingl y. Dictated By: FRITZ SOUZA for SHI MANSFIELD/DEEDEE Conf#: [id number] DID#: [id number]
== END | disposition home or self-care (01) ==
LOC: HKI 09:14
PROVIDERS: ATTEND Orthopaedic Surgery
DX: Z47.1 Aftercare following joint replacement surgery (principal); Z96.652 Presence of left artificial knee joint

== ENCOUNTER → 2016-10-19 | Outpatient (CLI) | payer OTHER | END | disposition home or self-care (01) | LOC: HKI 09:59 | PROVIDERS: ATTEND Orthopaedic Surgery | DX: Z47.1 Aftercare following joint replacement surgery (principal); Z96.652 Presence of left artificial knee joint; M17.12 Unilateral primary osteoarthritis, left knee ==

== ENCOUNTER → 2016-11-30 | Outpatient (CLI) | payer OTHER ==
--- NOTE | 2016-11-30 12:04 | RADRPT ---
PROCEDURE: XR right knee. CLINICAL INDICATION: Knee pain. TECHNIQUE: AP weightbearing, lateral weightbearing and sunrise views are available for review. COMPARISON: 09/21/2016 FINDINGS: There is a total knee replacement. There is no evidence of loosening of the prosthesis. There is no evidence of hardware failure. The osseous structures are normal in mineralization, architecture and alignment No acute fracture or dislocation is seen.No osseous lesions are identified. The soft tiss ues are unremarkable . IMPRESSION: Unremarkable total knee replacement. RPTAT: HGDB .Noe Suarez MD, MD Date Time Electronically viewed and signed by .Noe Suarez MD, MD on 11/30/2016 12:04 .B/
== END | disposition home or self-care (01) ==
LOC: HKI 10:09
PROVIDERS: ATTEND Orthopaedic Surgery
DX: Z47.1 Aftercare following joint replacement surgery (principal); M17.12 Unilateral primary osteoarthritis, left knee; Z96.652 Presence of left artificial knee joint